=== PATIENT | male | born 1960 | race Caucasian/White ===

== ENCOUNTER 2016-11-09 11:32 | Day surgery (SDC) | payer OTHER ==
[~2016-11-09] VITALS: Ht 180.3 cm; Wt 109.0 kg
[~2016-11-09 11:32] MED LIST: CIPR500T4; METR500T14
[2016-11-09 13:25] VITALS: Ht 180.3 cm; Wt 109.0 kg
[2016-11-09] MEDS ORDERED: PROPOFOL 40 ML ONE (13:36)
[2016-11-09] MEDS ORDERED: LIDOCAINE 2% (SDV) 5 ML INJ ONE (13:36)
[2016-11-09] MEDS ORDERED: MIDAZOLAM 1 MG/ML 2 ML INJ ONE (13:36)
[2016-11-09 15:15] VITALS: BP 131/89; PULSE 70; RESP 16
--- NOTE | 2016-11-09 16:18 | OPR ---
Date/Time of Note Date/Time of Note DATE: 11/09/16 TIME: 16:16 Operative Report Preoperative Diagnosis * Colorectal cancer screening * Diarrhea Postoperative Diagnosis Assessment: * Normal colonic mucosa * Rule out microscopic, lymphocytic or collagenous colitis. Biopsies obtained * Moderate-sized internal hemorrhoids Plan: * Review pathology * High-fiber, lactose-free diet * Annual Hemoccult stool testing * Screening colonoscopy in 10 years Operation/Procedure Performed * Colonoscopy with biopsies Anesthesia: MAC Estimated Blood Loss: none Specimens * Random colon Grafts/Implants NA Complications: None AURORA ROSSI MD Nov 09, 2016 16:18
--- NOTE | 2016-11-09 16:19 | OPR ---
Date/Time of Note Date/Time of Note DATE: 11/09/16 TIME: 16:18 Operative Report Preoperative Diagnosis * Dyspepsia Postoperative Diagnosis Assessment: * Mild gastritis. Rule out H. pylori infection. Biopsies obtained Plan: * Review pathology * Consider PPI therapy Operation/Procedure Performed * EGD with biopsies Anesthesia: MAC Estimated Blood Loss: none Specimens * Gastric body and antrum Grafts/Implants NA Complications: None AURORA ROSSI MD Nov 09, 2016 16:19
== END 2016-11-09 15:45 | disposition home or self-care (01) ==
LOC: GIL 11:32
PROVIDERS: ATTEND Internal Medicine Gastroenterology
DX: Z12.11 Encounter for screening for malignant neoplasm of colon (principal); K64.8 Other hemorrhoids; K29.70 Gastritis, unspecified, without bleeding
CPT/HCPCS: 43239; 45378; 88305; 88312; J2250; Z7610